=== PATIENT | male | born 1965 | race Caucasian/White ===

== ENCOUNTER 2018-10-21 14:43 | Emergency (ER) | payer OTHER ==
--- NOTE | 2018-10-21 14:57 | ED Physician Documentation ---
General Adult - HISTORIAN Historian: patient - HPI Stated Complaint: pain in left wrist - gout per pt Chief Complaint: Wrist Injury Onset: days ago (2) Timing: still present Severity: moderate Further Comments: yes (he states he gets a monthly gout attack and he noticed the pain increase in last day . He states he has tried all meds and prednisone is the only true help. HE denies any injury .) - ROS CONST: no problems EYES/ENT: none CVS/RESP: none GI/: none MS/SKIN/LYMPH: none - PAST HX Past History: other (gout) Immunizations: UTD - SOCIAL HX Smoking History: non-smoker Alcohol Use: none Drug Use: none - FAMILY HX Family History: No - REVIEWED ASSESSMENTS Nursing Assessment Reviewed: Yes Vitals Reviewed: Yes General Adult Physical Exam - PHYSICAL EXAM GENERAL APPEARANCE: no distress EENT: eye inspection normal, no signs of dehydration NECK: normal inspection RESPIRATORY: no resp distress, chest non-tender CVS: reg rate & rhythm ABDOMEN: soft, normal bowel sounds, no distension BACK: normal inspection SKIN: warm/dry, normal color EXTREMITIES: tenderness (left lateral wrist - FROM. Sensation + pulses + cap refill + ) NEURO: oriented X3 Discharge Clincal Impression: Gout attack Qualifiers: Gout site: wrist Gout etiology: unspecified cause Laterality: left Qualified Code(s): M10.9 - Gout, unspecified Referrals: Primary Doctor,No [Primary Care Provider] - 2 Days Comments: 1. Prednisone 20 mg take 1 by mouth daily x 5 days 2. Continue meds 3. Ibuprofen as directed as needed for pain 4. Follow up with Specialist or PCP if no improvement in 2-4 days 5. Return to ER for any concerns Condition: Stable Disposition: 01 HOME, SELF-CARE Decision to Admit: NO Date of Decison to Admit: 10/21/18 Decision Time: 15:16
[2018-10-21 15:31] VITALS: BP 120/96
== END 2018-10-21 15:31 | disposition home or self-care (01) ==
LOC: ED 14:43
DX: M10.9 Gout, unspecified (principal)
CPT/HCPCS: 99281; 99282

== ENCOUNTER 2018-12-04 20:06 | Emergency (ER) | payer OTHER ==
[2018-12-04] MEDS: BUTORPHANOL TARTRATE 1 MG/ML VIAL IM ONE (20:45)
[2018-12-04] MEDS: KETOROLAC TROMETHAMINE 60 MG/2 ML VIAL IM ONE (20:45)
[2018-12-04 21:08] VITALS: BP 124/68
--- NOTE | 2018-12-04 22:00 | ED Physician Documentation ---
General Adult - HISTORIAN Historian: patient - HPI Stated Complaint: Rt knee pain (Hx of chronic gout) Chief Complaint: General Adult Further Comments: yes (53 year old male patient presents with right knee pain and complaints of gout flair. Patient reports 26 year history of gout, followed by [facility]. Reports steriod pack has worked well in the past. Denies trauma, fall or injury to right knee.) - ROS CONST: no problems EYES/ENT: none CVS/RESP: none GI/: none MS/SKIN/LYMPH: none NEURO/PSYCH: denies: headache - PAST HX Past History: hypertension, other (gout) Allergies/Adverse Reactions: Allergies Allergy/AdvReac Type Severity Reaction Status Date / Time Penicillins Allergy Verified 12/04/18 20:18 Home Medications: Ambulatory Orders Medication Instructions Recorded Methylprednisolone [Medrol] 4 mg PO DAILY #1 tab.ds.pk 12/04/18 Unobtainable 12/04/18 - SOCIAL HX Smoking History: cigarettes - FAMILY HX Family History: No - VITAL SIGNS Vital Signs: Vital Signs Temp Pulse Resp BP Pulse Ox 98.8 F 92 H 16 124/68 99 12/04/18 20:08 12/04/18 21:06 12/04/18 21:06 12/04/18 21:06 12/04/18 20:08 - REVIEWED ASSESSMENTS Nursing Assessment Reviewed: Yes Vitals Reviewed: Yes ED Results Lab/Radiology - Lab Results Lab Results: Lab Results 12/04/18 20:32 Uric Acid 5.0 mg/dL mg/dL (3.5-8.5) - Orders Orders: ED Orders Category Date Time Status URIC ACID Stat Lab 12/04/18 20:32 Completed Butorphanol Tartrate [Stadol] Med 12/04/18 20:44 Discontinued 1 mg IM NOW ONE Ketorolac Tromethamine [Toradol] Med 12/04/18 20:44 Discontinued 60 mg IM NOW ONE General Adult Physical Exam - PHYSICAL EXAM GENERAL APPEARANCE: mild distress EENT: eye inspection normal, GELA RESPIRATORY: no resp distress CVS: reg rate & rhythm ABDOMEN: soft, no organomegaly, normal bowel sounds, no abdominal bruit, no distension BACK: normal inspection, no CVA tenderness SKIN: normal color, warm/dry, NR, INT, PAL, DR EXTREMITIES: no evidence of injury, no edema, other (right knee with hyperthermia; mild edema; tender to palpation; ) NEURO: oriented X3, motor nml, sensation nml, mood/affect nml Discharge Clincal Impression: Gout attack Qualifiers: Gout site: knee Gout etiology: unspecified cause Laterality: right Qualified Code(s): M10.9 - Gout, unspecified Prescriptions: Methylprednisolone [Medrol] 4 mg PO DAILY #1 tab.ds.pk Referrals: Primary Doctor,No [Primary Care Provider] - 2 Days Condition: Fair Disposition: 01 HOME, SELF-CARE Decision to Admit: NO Decision Time: 20:55
== END 2018-12-04 20:55 | disposition home or self-care (01) ==
LOC: ED 20:06
DX: M10.9 Gout, unspecified (principal); Z72.0 Tobacco use
CPT/HCPCS: 36415; 84550; 96372; 99283; J1885